=== PATIENT | female | born 1975 | race Caucasian/White ===

== ENCOUNTER 2021-11-22 10:48 | Emergency (ER) | payer OTHER, SELFPAY ==
[2021-11-22 11:47] VITALS: BP 135/97; PULSE 83; RESP 20; TEMP 36.5; O2SAT 100
--- NOTE | 2021-11-22 12:49 | ED.NAVMDI ---
HPI - Nausea/Vomiting/Diarrhea General Chief complaint: Nausea/Vomiting/Diarrhea Stated complaint: Body Ache/Diarrhea/Vomiting Source: patient and RN notes reviewed Mode of arrival: ambulatory History of Present Illness HPI Narrative: Patient presented for complaint of body aches, sore throat, nausea, vomiting, diarrhea, fever and chills with associated dry cough and fatigue for about 3 days. She has not taken anything for symptoms. Denies chest pain, palpitations, shortness of breath, or dizziness. Related Data Home Medications Medication Instructions Recorded Confirmed famotidine [Pepcid] 40 mg PO DAILY 11/22/21 11/22/21 Allergies Allergy/AdvReac Type Severity Reaction Status Date / Time No Known Allergies Allergy Unverified 11/22/21 12:38 Review of Systems Review of Systems: All systems reviewed & are unremarkable except as noted in HPI and below [facility] Family History Family History (Updated 11/22/21 @ 12:56 by Petty Rivera, IMPLEMENTATION ARCHITECT) Other Family history non-contributory Exam Narrative: GENERAL: Ill-appearing no acute distress. HEAD: Normocephalic, atraumatic. EYES: EOMI. No redness or drainage. Conjunctivae normal. ENT: Mucous membranes pink and moist. Nares clear. TM normal bilaterally. NECK: Normal AROM. Supple. No lymphadenopathy. CHEST: No respiratory distress. Clear to auscultation. HEART: Regular rate and rhythm. No murmur appreciated. Normal peripheral pulses. ABDOMEN: Soft, nontender, nondistended MUSCULOSKELETAL: No bony tenderness. EXTREMITIES: Normal range of motion. No edema. SKIN: Warm, dry, no rash. Capillary refill normal. Normal skin turgor. NEURO: No focal deficits. Alert and oriented x3. Gait steady. PSYCH: Normal affect. No signs of depression or anxiety. Course Course Level of Care: Express Care Visit Vital Signs Vital signs: Vital Signs Temperature 97.7 F 11/22/21 11:47 Pulse Rate 83 11/22/21 11:47 Respiratory Rate 20 11/22/21 11:47 Blood Pressure 135/97 H 11/22/21 11:47 Pulse Oximetry 100 11/22/21 11:47 Temperature 97.7 F 11/22/21 11:47 Pulse Rate 83 11/22/21 11:47 Respiratory Rate 20 11/22/21 11:47 Blood Pressure 135/97 H 11/22/21 11:47 Pulse Oximetry 100 11/22/21 11:47 MDM - Nausea/Vomiting/Diarrhea MDM Narrative Medical decision making narrative: Covid positive. Patient is discharged with instructions on supportive care and prescription for Zofran, Flonase, and Zyrtec. She is requesting something to help her sleep, we discussed [id number] melatonin and Tylenol. Differential Diagnosis Differential diagnosis: Likely gastroenteritis and other Lab Data Attestation: I reviewed the patient's lab results. Labs: Influenza A Screen Negative Reference Range: Negative Influenza B Screen Negative Reference Range: Negative Strep Screen Presumptive Negative *(Reference Range: Negative)* Discharge Plan Discharge Clinical Impression: COVID-19 Patient Disposition: Home, Self-Care Condition: Stable Instructions: Antibiotic Form, COVID-19 (Coronavirus Disease 2019) (ED) Additional Instructions: You tested positive for Covid-19 Rest. Take medication as directed. Follow-up with your primary care provider as needed in 1 to 2 weeks. Melatonin for sleep if needed. The following recommendations have been made by the CDC and local Health Departments, regarding COVID-19: Those individuals with mild cases of COVID-19 can generally be discontinued from isolation, 5 days AFTER the onset of symptoms AND the resolution of fever for 24hrs (without the use of fever-reducing medications) Those individuals who were asymptomatic, and tested positive, are discontinued from isolation 5 days AFTER their first positive COVID-19 test WHEN TO SEEK ER EVALU
== END 2021-11-22 12:55 | disposition home or self-care (01) ==
PROVIDERS: Emergency Provider Nurse Practitioner Family
DX: U07.1 COVID-19 (principal)
CPT/HCPCS: 87081; 87426; 87804; 87880; 99203; C9803; G0463

== ENCOUNTER 2022-06-28 09:08 | Emergency (ER) | payer OTHER, SELFPAY ==
[2022-06-28 09:14] VITALS: BP 113/73; PULSE 84; RESP 20; TEMP 36.4; O2SAT 99
[2022-06-28 09:25] VITALS: BP 113/73; PULSE 84; RESP 20; TEMP 36.4; O2SAT 99
--- NOTE | 2022-06-28 09:25 | ED.GENADULT ---
HPI - General Adult General Chief complaint: Upper Respiratory Infection Stated complaint: chills back pain headache sore throat Time Seen by Provider: 06/28/22 09:25 Source: patient, RN notes reviewed and old records reviewed Mode of arrival: ambulatory Limitations: no limitations History of Present Illness HPI narrative: 46 year old female who present to [facility] care with complaints of illness since Friday of body aches, sore throat,headaches, diarrhea, nausea with some vomiting,some left lower abdominal discomfort and some burning with urination, low grade temperature and chills. Patient has not been vaccinated for COVID or Flu, did have COVID 19 about 8 months ago. Patient reports she did take a COVID test at home which was negative this morning. MD complaint: body aches, headaches, diarrhea, nausea and vomiting, low grade temp chills Onset (ago): day(s) (3) Severity scale (1-10): 9 Quality: aching Associated symptoms: fever/chills, headaches, loss of appetite, malaise, nausea/vomiting and other (left abdominal discomfort) Treatments prior to arrival: NSAID and other (Tylenol) Related Data Allergies Allergy/AdvReac Type Severity Reaction Status Date / Time No Known Allergies Allergy Unverified 06/28/22 09:16 Review of Systems Review of Systems: CONSTITUTIONAL: Positive fever, chills, or sweats. EYES: Denies visual changes, redness, or discharge. ENT: Denies rhinorrhea, congestion, positive sore throat, or otalgia. CARDIOVASCULAR: Denies chest pain, palpitations, or edema. RESPIRATORY: Denies cough or dyspnea. GASTROINTESTINAL: Positive left lower abdominal pain, nausea, vomiting, or diarrhea. GENITOURINARY:positive dysuria no visible hematuria. SKIN: Denies rash or itching. MUSCULOSKELETAL: Denies back pain, joint pain,positive for body aches NEUROLOGIC: Positive headache,no numbness, or weakness. PSYCHIATRIC: Denies anxiety or depression. All systems reviewed & are unremarkable except as noted in HPI and below PMFSH Past Medical History Medical History (Updated 06/29/22 @ 10:17 by Chery Sumner NP) IBS (irritable bowel syndrome) Kidney stones Mass of right axilla removed Migraine Reflux esophagitis UTI (urinary tract infection) Surgical History Surgical History (Updated 06/29/22 @ 10:22 by Chery Sumner NP) H/O sinus surgery H/O tubal ligation History of cholecystectomy History of mandibular surgery History of partial hysterectomy History of salpingo-oophorectomy right History of tonsillectomy Family History Family History (Updated 11/22/21 @ 12:56 by Petty Rivera APRN) Other Family history non-contributory Social History Social History (Updated 06/29/22 @ 10:21 by Chery Sumner NP) Smoking status: Never smoker Alcohol intake: unknown Substance use type: does not use Living arrangements: with family Gender identity (if verbalized by the patient): Female Comments at time of signature agree with nursing documentation of past medical ,surgical, social, and family history. There is no relevant family history pertinent to resenting complaint. Exam Narrative: GENERAL: ill-appearing, well-nourished, and in no acute distress. HEAD: Normocephalic, atraumatic. EYES: PERRLA and EOMI. ENT: Nares clear, no rhinorrhea or epistaxis. Mucous membranes moist.TM's normal with dull light reflex, throat red with no lesions or exudates no tonsils present NECK: Supple.no lymphadenopathy CHEST: Clear to auscultation. No respiratory distress.SAO2 99% on room air HEART: Regular rate and rhythm. No murmur heard. Normal peripheral pulses. ABDOMEN: Soft, tender left lower quadrant abdominal pain, nondistended, normal active bowel sounds,lower back pain verbalized on examination EXTREMITIES: Normal range of motion. No edema. SKIN: Warm, dry, no rash. NEURO: No focal deficits. Alert and oriented x3. Course Course Level of Care: Express Care Visit Vital Signs Vital signs: Vital Signs
== END 2022-06-28 10:10 | disposition home or self-care (01) ==
PROVIDERS: Emergency Provider Registered Nurse; PCP Family Medicine
DX: N39.0 Urinary tract infection, site not specified (principal); K52.9 Noninfective gastroenteritis and colitis, unspecified; Z20.822 Contact with and (suspected) exposure to COVID-19; K21.00 Gastro-esophageal reflux disease with esophagitis, without bleeding; Z90.711 Acquired absence of uterus with remaining cervical stump; Z28.310 Unvaccinated for COVID-19
CPT/HCPCS: 81003; 87086; 87088; 87426; 87804; 99213; C9803; G0463